=== PATIENT | female | born 1990 | race Caucasian/White ===

== ENCOUNTER 2016-12-24 14:00 | Observation (INO) | payer MEDICAID ==
[~2016-12-24] VITALS: Ht 172.7 cm; Wt 83.0 kg
[2016-12-24] MEDS ORDERED: PREN-153 OR (15:55)
[2016-12-24] MEDS ORDERED: LACT. RINGERS/OXYTOCIN 20UNITS 1,000 ML IV SCH (16:11)
[2016-12-24] MEDS ORDERED: LACTATED RINGER'S 1,000 ML IV SCH (16:11)
[2016-12-24] MEDS ORDERED: LIDOCAINE 2%HCL (LOCAL ANESTH.) INJ 20ML MDV IJ ONE (16:15)
[2016-12-24] MEDS ORDERED: NALBUPHINE HCL 10 MG/1ml INJECTION IV PRN (16:15)
[2016-12-24] MEDS ORDERED: DERMOPLAST 60ML BOTTLE TOP PRN (16:15)
[2016-12-24] MEDS ORDERED: PHISODERM TOP SOLN 240ML BTL TOP PRN (16:15)
[2016-12-24] MEDS ORDERED: METHYLERGONOVINE MALEATE 0.2 MG/ML AMP IM PRN (16:15)
[2016-12-24] MEDS ORDERED: WITCH HAZEL-GLYCERIN PAD TOP PRN (16:15)
[2016-12-24] MEDS ORDERED: PENICILLIN G POT 5MIL/D5 50ML 50 ML IV ONE ×2 (16:47→17:00)
[2016-12-24 17:12] LABS: Basophils # (auto) 0 uL; Basophils % (auto) 0.3 % (0.0-2.0); CONDITION Y; Eosinophils # (auto) 0 uL; Eosinophils % (auto) 0.3 % (0.0-7.0); Hematocrit 35.6 % (36.0-46.0); Lymphocytes # (auto) 1.4 uL; Lymphocytes % (auto) 15.1 % (10.0-50.0); Mean Corpuscular Hemoglobin 29.7 pg (28.0-32.0); Mean Corpuscular Hgb Conc. 33.6 g/dL (32.0-36.0); Mean Corpuscular Volume 88.4 fL (80.0-100.0); Mean Platelet Volume 9.7 fL (7.4-10.4); Monocytes # (auto) 0.4 uL; Monocytes % (auto) 4.2 % (0.0-12.0); Neutrophils # (auto) 7.4 uL; Neutrophils % (auto) 80.1 % (37.0-80.0); Platelet Count (auto) 198 10^3/uL (140-450); Red Cell Distribution Width 15.1 % (11.6-16.0); White Blood Cell 9.3 10^3/uL (4.4-10.8)
[2016-12-24 17:25] LABS: INR 0.87 (0.9-1.15); Partial Thromboplastin Time 27.6 sec (22.64-33.71); Prothrombin Time 9.5 sec (9.37-12.3)
[2016-12-24 17:33] LABS: Urine Bilirubin Negative (Negative); Urine Blood Negative /uL (Negative); Urine Color Yellow (Yellow); Urine Glucose Normal (Normal); Urine Ketone Negative (Negative); Urine Mucus FEW (None Seen); Urine Nitrite Negative (Negative); Urine RBC <1 /hpf (0 - 4); Urine Squamous Epithelial Cell FEW /hpf (<5); Urine Urobilinogen Normal (Negative); Urine pH 6.5 (5.0-8.0)
[2016-12-24 17:39] LABS: Albumin 2.6 g/dL (3.4-5.0); BUN/Creatinine Ratio 9.8; Bilirubin, Total 0.2 mg/dL (0.2-1.0); Calcium 8.4 mg/dL (8.5-10.1); Potassium 3.4 mmol/L (3.5-5.1); Total Protein 6.5 g/dL (6.4-8.2)
[2016-12-24] MEDS ORDERED: IBUPROFEN 600 MG TAB PO ONE (18:51)
[2016-12-24] MEDS: IBUPROFEN 600 MG TAB PO PRN (19:00)
[2016-12-24] MEDS ORDERED: HYDROcodone-ACET 5/325MG TAB PO PRN (20:00)
[2016-12-24] MEDS ORDERED: PENICILLIN G POTASSIUM 2,500,000 UNITS in D5W 5% 50 ML IV SCH (21:00)
[2016-12-25 04:30] VITALS: BP 89/54
[2016-12-25 08:00] VITALS: BP 112/63
[2016-12-25] MEDS: IBUPROFEN 600 MG TAB PO PRN ×2 (09:12→18:43)
[2016-12-25 12:00] VITALS: BP 106/72
[2016-12-25 16:00] VITALS: BP 106/63
[2016-12-25 18:36] VITALS: BP 104/64
[2016-12-25 23:00] VITALS: BP 92/55
[2016-12-26 03:00] VITALS: BP 107/64
[2016-12-26 07:00] VITALS: BP 95/65
[2016-12-26] MEDS: IBUPROFEN 600 MG TAB PO PRN ×2 (07:45→16:37)
[2016-12-26 11:30] VITALS: BP 94/52
[2016-12-26 15:30] VITALS: BP 95/52
== END 2016-12-26 17:00 | disposition home or self-care (01) | DRG 566 ==
LOC: LDRP 14:00 → INTOOBSV 16:05 → LDRP 16:05 → OBSVTOIN 16:05
PROVIDERS: ADMIT Obstetrics & Gynecology; ATTEND Obstetrics & Gynecology
DX: O42.92 Full-term premature rupture of membranes, unspecified as to length of time between rupture and onset of labor (principal); Z3A.37 37 weeks gestation of pregnancy
CPT/HCPCS: 36415; 59025; 76818; 80053; 80307; 81001; 81002; 85025; 85610; 85730; 86592; 86850; 86900; 86901; 96361; 96365; G0378; J2540; J2590; 59409; 96366; J7060

== ENCOUNTER 2024-02-10 11:05 | Emergency (ER) | payer MEDICAID ==
[~2024-02-10] VITALS: Ht 172.7 cm; Wt 80.2 kg
[~2024-02-10 11:05] MED LIST: PREN1TAB71 OR
[2024-02-10 11:53] VITALS: BP 119/82; PULSE 87; RESP 16; TEMP 98.8; O2SAT 97
[2024-02-10] MEDS ORDERED: IBUP-1456 PO (12:47)
[2024-02-10] MEDS ORDERED: METH-1182 PO (12:47)
== END 2024-02-10 12:55 | disposition home or self-care (01) ==
LOC: ER 11:05
DX: S16.1XXA Strain of muscle, fascia and tendon at neck level, initial encounter (principal); S20.219A Contusion of unspecified front wall of thorax, initial encounter; Z79.899 Other long term (current) drug therapy; V43.52XA Car driver injured in collision with other type car in traffic accident, initial encounter; Y93.I9 Activity, other involving external motion; Y92.89 Other specified places as the place of occurrence of the external cause; Y99.8 Other external cause status
CPT/HCPCS: 71046; 72040